=== PATIENT | female | born 1945 | race Two or more races ===

== ENCOUNTER 2023-02-26 16:22 | Emergency (ER) | payer SELFPAY ==
[2023-02-26 16:31] VITALS: BP 115/65; PULSE 94; RESP 16; TEMP 98.7; BMI 24.6
[2023-02-26 17:50] LABS: EPI CELLS 9 /uL (0-25.1); HYALINE CASTS 0 /uL (0-3.1); URINE APPEARANCE CLEAR; URINE BACTERIA 199 /uL (0-1359); URINE BILIRUBIN NEGATIVE (NEGATIVE); URINE COLOR YELLOW; URINE GLUCOSE (UA) NEGATIVE (NEGATIVE); URINE KETONE NEGATIVE (NEGATIVE); URINE LEUK ESTERASE TRACE (NEGATIVE); URINE NITRITE NEGATIVE (NEGATIVE); URINE PROTEIN NEGATIVE (NEGATIVE); URINE RBC 18 /uL (0-23.9); URINE UROBILINOGEN 0.2 mg/dL (0.2-1.0); URINE WBC 26 /uL (0-25.8)
[2023-02-26 18:48] LABS: BASO % 0.9 % (0-2.0); EOS % 2.3 % (0-4.5); HEMATOCRIT 40.8 % (32.4-45.2); HEMOGLOBIN 13.6 GM/dL (10.7-15.3); LYMPH % 28.2 % (8-40); MCHC 33.4 g/dl (32.0-36.0); MEAN CELL VOLUME 86.6 fl (80-96); MEAN PLT VOLUME 7.4 fl (7.5-11.1); MONO % 6.1 % (3.8-10.2); NEUT % 62.5 % (42.8-82.8); PLATELET COUNT 340 10^3/uL (134-434); RBC 4.71 M/mm3 (3.60-5.2); WHITE BLOOD COUNT 12.4 K/mm3 (4.0-10.0)
[2023-02-26 19:29] LABS: POTASSIUM 4.6 mmol/L (3.5-5.1)
[2023-02-26 19:31] LABS: CALCIUM 9.4 mg/dL (8.5-10.1)
[2023-02-26 19:32] LABS: ALBUMIN 3.7 g/dl (3.4-5.0); BLOOD UREA NITROGEN 17.4 mg/dL (7-18)
[2023-02-26 19:35] LABS: CREATININE 0.7 mg/dL (0.55-1.3)
[2023-02-26 19:36] LABS: BILIRUBIN,TOTAL 0.2 mg/dL (0.2-1)
[2023-02-26 19:37] LABS: TOT PROT 7.2 g/dl (6.4-8.2)
== END 2023-02-26 20:02 | disposition home or self-care (01) ==
LOC: JER 16:22
DX: M54.9 Dorsalgia, unspecified (principal); R51.9 Headache, unspecified; G89.29 Other chronic pain
CPT/HCPCS: 36415; 70450-TC; 80053; 81003; 85025; 87086; 99284-25

== ENCOUNTER 2023-03-02 12:37 | Inpatient (IN) | payer SELFPAY ==
[2023-03-02] MEDS ORDERED: SODIUM CHLORIDE 1,000 ML IV SCH (12:45)
[2023-03-02 12:51] VITALS: BMI 24.5
[2023-03-02] MEDS ORDERED: ACETAMINOPHEN 1000 MG/100 ML BAG IVPB ONE (13:35)
[2023-03-02] MEDS ORDERED: MAG HYDROX/AL HYDROX/SIMETH 30 ML UNIT-DOSE CUP PO ONE (13:35)
[2023-03-02] MEDS ORDERED: FAMOTIDINE 20 MG/50 ML IVPB 20 MG/50 ML MG IVPB ONE ×2 (13:35→14:00)
[2023-03-02] MEDS ORDERED: MAG HYDROX/AL HYDROX/SIMETH 30 ML UNIT-DOSE CUP ONE (13:59)
[2023-03-02] MEDS ORDERED: ACETAMINOPHEN INJECTION 100 ML IVPB ONE (13:59)
[2023-03-02 14:18] LABS: BASO % 0.7 % (0-2.0); EOS % 1.6 % (0-4.5); HEMATOCRIT 46.6 % (32.4-45.2); HEMOGLOBIN 15.4 GM/dL (10.7-15.3); LYMPH % 26.1 % (8-40); MCH 28.5 pg (25.7-33.7); MEAN CELL VOLUME 86.3 fl (80-96); MEAN PLT VOLUME 7.8 fl (7.5-11.1); MONO % 5.8 % (3.8-10.2); NEUT % 65.8 % (42.8-82.8); PLATELET COUNT 372 10^3/uL (134-434); RDW 15.1 % (11.6-15.6)
[2023-03-02 14:34] LABS: INR 1.01 (0.83-1.09); PROTHROMBIN TIME (PATIENT) 11.7 SEC (9.7-13.0)
[2023-03-02 14:37] LABS: ACTIVATED PTT 29.6 SECONDS (25.2-36.5)
[2023-03-02 14:48] LABS: POTASSIUM 4.7 mmol/L (3.5-5.1)
[2023-03-02 14:51] LABS: CALCIUM 9.8 mg/dL (8.5-10.1)
[2023-03-02 14:52] LABS: ALBUMIN 3.7 g/dl (3.4-5.0)
[2023-03-02 14:55] LABS: BLOOD UREA NITROGEN 24.8 mg/dL (7-18); CREATININE 0.7 mg/dL (0.55-1.3)
[2023-03-02 14:57] LABS: TOT PROT 7.6 g/dl (6.4-8.2)
[2023-03-02 14:58] LABS: BILIRUBIN,TOTAL 0.7 mg/dL (0.2-1)
[2023-03-02] MEDS ORDERED: METOCLOPRAMIDE HCL INJECTION 10 MG/2 ML VIAL IVPB ONE (15:41)
[2023-03-02] MEDS ORDERED: MAGNESIUM SULF 50% (8.12 MEQ/2 ML-1 GM VIAL) IVPB ONE (15:41)
[2023-03-02] MEDS ORDERED: MAGNESIUM 1GM/D5W - 1 GM/100 ML IVPB IVPB ONE (15:51)
[2023-03-02] MEDS ORDERED: METOCLOPRAMIDE HCL INJECTION 10 MG/2 ML VIAL ONE (15:51)
[2023-03-02 15:52] LABS: PH,URINE 7.5 (5.0-8.0); URINE APPEARANCE CLEAR; URINE BILIRUBIN NEGATIVE (NEGATIVE); URINE COLOR YELLOW; URINE GLUCOSE (UA) NEGATIVE (NEGATIVE); URINE KETONE NEGATIVE (NEGATIVE); URINE LEUK ESTERASE NEGATIVE (NEGATIVE); URINE NITRITE NEGATIVE (NEGATIVE); URINE PROTEIN NEGATIVE (NEGATIVE); URINE UROBILINOGEN 0.2 mg/dL (0.2-1.0)
[2023-03-02] MEDS ORDERED: ACETAMINOPHEN/CAFFEINE/BUTALBITAL 1 TAB PO PRN (17:16)
[2023-03-02] MEDS ORDERED: LOSARTAN POTASSIUM 25 MG TABLET PO ONE (17:27)
[2023-03-02] MEDS ORDERED: LOSARTAN POTASSIUM 50 MG TABLET PO SCH (17:30)
[2023-03-02] MEDS ORDERED: ASPIRIN 81 MG CHEWABLE TABLETS ONE (17:49)
[2023-03-02] MEDS ORDERED: LOSARTAN POTASSIUM 25 MG TABLET ONE (17:49)
[2023-03-02] MEDS: ASPIRIN 81 MG CHEWABLE TABLETS PO SCH (17:55)
[2023-03-02] MEDS ORDERED: PANTOPRAZOLE 40 MG TABLET PO ONE (20:59)
[2023-03-02] MEDS ORDERED: ATORVASTATIN CA 40 MG TABLET (FP) ONE (20:59)
[2023-03-02] MEDS: PANTOPRAZOLE SODIUM 40 MG VIAL IVPUSH SCH (21:07)
[2023-03-02] MEDS ORDERED: ATORVASTATIN CA 80 MG TABLET (FP) PO SCH (22:00)
[2023-03-03] MEDS ORDERED: ACETAMINOPHEN 1000 MG/100 ML BAG IVPB ONE (00:01)
[2023-03-03] MEDS ORDERED: ACETAMINOPHEN INJECTION 100 ML IVPB ONE (00:04)
[2023-03-03] MEDS ORDERED: ATORVASTATIN CA 40 MG TABLET (FP) PO SCH (06:16)
[2023-03-03 08:27] LABS: HEMATOCRIT 45.6 % (32.4-45.2); HEMOGLOBIN 15.3 GM/dL (10.7-15.3); MCHC 33.6 g/dl (32.0-36.0); MEAN CELL VOLUME 86.3 fl (80-96); MEAN PLT VOLUME 7.7 fl (7.5-11.1); PLATELET COUNT 333 10^3/uL (134-434); RBC 5.28 M/mm3 (3.60-5.2); WHITE BLOOD COUNT 10.4 K/mm3 (4.0-10.0)
[2023-03-03 08:42] LABS: POTASSIUM 4.5 mmol/L (3.5-5.1)
[2023-03-03 08:43] VITALS: BP 155/86; PULSE 106; RESP 18; TEMP 98.1
[2023-03-03 08:46] LABS: CALCIUM 9.1 mg/dL (8.5-10.1)
[2023-03-03 08:47] LABS: ALBUMIN 3.8 g/dl (3.4-5.0); BLOOD UREA NITROGEN 14.5 mg/dL (7-18); MAGNESIUM 2.4 mg/dL (1.8-2.4)
[2023-03-03 08:50] LABS: CREATININE 0.6 mg/dL (0.55-1.3)
[2023-03-03 08:51] LABS: BILIRUBIN,TOTAL 0.8 mg/dL (0.2-1); TOT PROT 7.7 g/dl (6.4-8.2)
[2023-03-03] MEDS ORDERED: CEFTRIAXONE 1 GM in DEXTROSE 5%-WATER - 50 ML IVPB ONE (09:59)
[2023-03-03] MEDS ORDERED: TOPIRAMATE 25 MG TABLET PO SCH (10:00)
[2023-03-03] MEDS ORDERED: LOSARTAN POTASSIUM 50 MG TABLET PO SCH (10:00)
[2023-03-03] MEDS ORDERED: LOSARTAN POTASSIUM 25 MG TABLET ONE (10:05)
[2023-03-03] MEDS ORDERED: ASPIRIN 81 MG CHEWABLE TABLETS ONE (10:06)
[2023-03-03] MEDS ORDERED: TOPIRAMATE 25 MG TABLET ONE (10:06)
[2023-03-03] MEDS ORDERED: PANTOPRAZOLE SODIUM 40 MG/100 ML BAG IVPB ONE (10:06)
[2023-03-03] MEDS ORDERED: CEFTRIAXONE 1 GM/50 ML BAG ONE (10:06)
[2023-03-03] MEDS: ASPIRIN 81 MG CHEWABLE TABLETS PO SCH (10:13)
[2023-03-03] MEDS: PANTOPRAZOLE SODIUM 40 MG VIAL IVPUSH SCH (10:14)
[2023-03-07 07:12] LABS: FREE KAP CHN UR 9.11 mg/L (1.17-86.46); KAPPA LAMBDA RATIO URIN 3.8 (1.83-14.26)
== END 2023-03-03 10:32 | disposition home or self-care (01) | DRG 54 ==
LOC: JER 12:37 → JERBED 15:05
PROVIDERS: ADMIT Internal Medicine; ATTEND Internal Medicine
DX: G43.909 Migraine, unspecified, not intractable, without status migrainosus (principal); N39.0 Urinary tract infection, site not specified; E04.1 Nontoxic single thyroid nodule; K29.70 Gastritis, unspecified, without bleeding; M54.9 Dorsalgia, unspecified; R29.810 Facial weakness; C90.00 Multiple myeloma not having achieved remission; I67.1 Cerebral aneurysm, nonruptured
CPT/HCPCS: 0241U-QW; 36415; 70450-TC; 70496-TC; 70498-TC; 70551-TC; 80053; 80061; 81003; 82550; 82784; 82962; 83036; 83735; 83883; 84100; 84155; 84165; 84443; 84484; 85025; 85027; 85610; 85651; 85730; 86850; 86900; 86901; 87086; 93005; 93010; 99285-25; Q9967